=== PATIENT | female | born 1985 | race Caucasian/White ===

== ENCOUNTER 2024-07-07 12:14 | Emergency (ER) | payer SELFPAY ==
--- NOTE | ~2024-07-07 | XR_ITS ---
EXAMINATION: XR FOREARM, RIGHT CLINICAL INFORMATION: abscesses COMPARISON: None available. TECHNIQUE: AP and lateral views of the right forearm were obtained. FINDINGS: There is moderate proximal and mid forearm soft tissue swelling with punctate gas along medial mid forearm suggestive of underlying inflammatory changes. No bony abnormality seen. XR/XR forearm RT 2V IMPRESSION: Suspect soft tissue inflammatory changes along the proximal and mid forearm. Electronically signed by: Stewart Trevizo MD 07/07/2024 01:19 PM JOANN
--- NOTE | ~2024-07-07 | XR_ITS ---
EXAMINATION: XR ELBOW, LEFT CLINICAL INFORMATION: pain, abscesses COMPARISON: None available. TECHNIQUE: AP, lateral, and oblique views of the left elbow. FINDINGS: The bones and soft tissues are normal. No fracture or joint effusion. Alignment is anatomic. Joint spaces are maintained. XR/XR elbow LT min 3V IMPRESSION: Normal left elbow. Electronically signed by: Stewart Trevizo MD 07/07/2024 01:20 PM EST
--- NOTE | 2024-07-07 12:20 | ECG_ITS ---
Test Reason : chest pain Blood Pressure : */* mmHG Vent. Rate : 87 BPM Atrial Rate : 87 BPM P-R Int : 112 ms QRS Dur : 82 ms QT Int : 356 ms P-R-T Axes : 69 59 20 degrees QTcB Int : 428 ms Normal sinus rhythm Nonspecific T wave abnormality Abnormal ECG No previous ECGs available Referred By: Emily Fairchild Electronically Signed By: BARRIE BUENO MD
[2024-07-07 12:40] VITALS: BP 135/88; PULSE 112; RESP 18; TEMP 36.8; O2SAT 99; BMI 20.7
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
[2024-07-07] MEDS: Ibuprofen 600 MG TABLET PO (12:59)
[2024-07-07 16:34] LABS: Lactic Acid 1.6 mmol/L (0.5-2.0)
[2024-07-07 16:40] LABS: PLT CLUMP 1; Red Cell Distribution Width 13.2 % (11.0-16.0)
[2024-07-07 16:42] LABS: Alanine Aminotransferase 36 U/L (0-31); Albumin Level 3.7 g/dL (3.5-5.0); Alkaline Phosphatase 66 U/L (39-117); Anion Gap 14 (12-20); Aspartate Amino Transferase 51 U/L (5-31); Bilirubin Direct < 0.2 mg/dL (0.0-0.5); Bilirubin Total 0.2 mg/dL (0.0-1.0); Blood Urea Nitrogen 7 mg/dL (9-16); Calcium 8.6 mg/dL (8.4-10.2); Carbon Dioxide 21 mmol/L (22-29); Chloride 110 mmol/L (96-108); Creatinine Clr Calc Pharmacy 110.2; Estimated Glomerular Filt Rate > 60; Glucose Random 108 mg/dL (60-115); Hematocrit 35.2 % (37.0-47.0); Hemoglobin 11.7 g/dl (12.0-16.0); Mean Corpuscular HGB Conc 33.2 g/dl (31.0-35.0); Mean Corpuscular Hemoglobin 29.5 pg (27.0-33.0); Mean Corpuscular Volume 88.9 fL (80.0-98.0); Mean Platelet Volume 10.3 fL (9.4-12.3); Potassium 3.5 mmol/L (3.3-5.1); Red Blood Count 3.96 X10*6/uL (4.20-5.50); Sodium 141 mmol/L (135-145); Total Protein 7.3 g/dL (6.5-8.0)
[2024-07-07 16:44] LABS: HCG Quantitative < 2 mIU/mL; Troponin-I High Sensitivity < 2.7 ng/L (<3.5-17.0)
[2024-07-07 16:57] LABS: Influenza A PCR NEGATIVE (Negative); Influenza B PCR NEGATIVE (Negative); Resp Syncy Virus RNA Qual PCR NEGATIVE (Negative); SARS COV2 PCR INHOUSE NEGATIVE (Negative)
[2024-07-07 17:14] LABS: Band Neutrophils Percent 1 % (3-5); Lymphocytes Percent Manual 25 % (20-40); Monocytes Percent Manual 8 % (2-11); Neutrophils Percent Manual 66 % (45-73)
[2024-07-07 17:19] LABS: Ovalocytes 1+ (5-14) /OIF; RBC Morphology NOTED; Toxic Vacuolation PRESENT
[2024-07-07 17:20] LABS: Platelet Estimate NORMAL (NORMAL); Platelet Morphology Comment NORMAL
[2024-07-07 17:22] LABS: Lymphocytes Absolute Manual 2.4 X10*3/uL (1.2-4.9); Monocytes Absolute Manual 0.8 X10*3/uL (0.1-1.2); Neutrophils Absolute Manual 6.5 X10*3/uL (2.0-8.3); Platelet Count 222 X10*3/uL (160-400); White Blood Count 9.7 X10*3/uL (4.8-10.8)
[2024-07-07 19:27] VITALS: BP 131/77; PULSE 72; RESP 20; TEMP 36.7; O2SAT 97
[2024-07-07] MEDS: cephALEXin 500 MG CAPSULE PO (21:26)
[2024-07-07] MEDS: HYDROmorphone HCl 2 MG/ML VIAL IM ×2 (21:26→22:19)
[2024-07-07] MEDS: Doxycycline Monohydrate 100 MG CAPSULE PO (21:26)
[2024-07-07] MEDS: Lidocaine HCl 1 % MPF 5 ML VIAL INFILTRATI (22:21)
[2024-07-07] MEDS: Morphine Sulfate 10 MG/ML CARTRIDGE 8 MG IM (23:28)
[2024-07-07 23:54] VITALS: BP 126/65; PULSE 82; RESP 16; TEMP 37; O2SAT 97
[2024-07-08 00:42] VITALS: BP 126/65; PULSE 82; RESP 16; TEMP 37; O2SAT 97
== END 2024-07-08 00:42 | disposition home or self-care (01) ==
PROVIDERS: Physician Assistant Medical; Emergency Provider Emergency Medicine Emergency Medical Services
DX: L02.414 Cutaneous abscess of left upper limb (principal); L02.413 Cutaneous abscess of right upper limb; R07.89 Other chest pain; M79.602 Pain in left arm; R50.9 Fever, unspecified; M79.601 Pain in right arm; Z03.818 Encounter for observation for suspected exposure to other biological agents ruled out; Z79.899 Other long term (current) drug therapy
CPT/HCPCS: 0241U; 10060; 36415; 73080; 73090; 80048; 80076; 83605; 83735; 84484; 84702; 85007; 85025; 85027; 87040; 87070; 87077; 87186; 87205; 93005; 96372; 99284; J1171; J2003; J2270

== ENCOUNTER → 2024-07-07 12:20 | Outpatient (BNV) | payer SELFPAY | PROVIDERS: Visit Provider Internal Medicine Cardiovascular Disease | DX: R07.9 Chest pain, unspecified (principal); R94.31 Abnormal electrocardiogram [ECG] [EKG] | CPT/HCPCS: 93010 ==

== ENCOUNTER → 2024-07-07 13:01 | Outpatient (BNV) | payer SELFPAY | PROVIDERS: Visit Provider Radiology Diagnostic Radiology | DX: M25.522 Pain in left elbow (principal); M79.602 Pain in left arm | CPT/HCPCS: 73080; 73090 ==